=== PATIENT | male | born 1970 ===

== ENCOUNTER 2021-07-26 10:36 | Emergency (ER) | payer SELFPAY ==
[~2021-07-26] VITALS: Ht 180.3 cm; Wt 77.4 kg
[2021-07-26 10:47] VITALS: BP 132/81
[2021-07-26] MEDS ORDERED: LIDOCAINE 1% Multi-Dose 20 ML VIAL. INJ ONE (11:15)
[2021-07-26] MEDS ORDERED: CLINDAMYCIN HCL 150 MG CAPSULE. PO ONE (11:15)
[2021-07-26] MEDS ORDERED: HYDROcodone/APAP 5/325MG 1 TAB TABLET PO ONE (11:45)
[2021-07-26] MEDS ORDERED: IBUPROFEN 200 MG TABLET. PO ONE (11:45)
[2021-07-26] MEDS ORDERED: IBUP-1007 PO (11:47)
[2021-07-26] MEDS ORDERED: CLIN150C16 PO (11:47)
--- NOTE | 2021-07-26 11:47 | PHYS DOC ---
Past Medical History Past Medical History: No Pertinent History Past Surgical History: No Surgical History Smoking Status: Current Every Day Smoker Alcohol Use: Occasionally General Adult EDM: Chief Complaint: ABSCESS HPI: HPI: Patient is a 50-year-old male presents emergency department complaining of a infection to the left side of his face for the past 2 days. Patient reports pulling a hair out of the center of it and draining some green fluid yesterday, patient reports it was more swollen today worried that it might be an abscess. Patient denies numbness or tingling to his face, reports a 5 out of 10 pain, denies recent fever or chills, denies other physical complaints or physical concerns. Review of Systems: Review of Systems: 14 body systems of review of systems have been reviewed. See HPI for pertinent positives and negative responses, otherwise all other systems are negative, nonpertinent or noncontributory. Constitutional: Negative except as outlined in HPI above. Skin: Negative except as outlined in HPI above. Eyes: Negative except as outlined in HPI above. HENT: Negative except as outlined in HPI above. Respiratory: Negative except as outlined in HPI above. Cardiovascular: Negative except as outlined in HPI above. GI: Negative except as outlined in HPI above. : Negative except as outlined in HPI above. Musculoskeletal: Negative except as outlined in HPI above. Integument: Negative except as outlined in HPI above. Neurologic: Negative except as outlined in HPI above. Endocrine: Negative except as outlined in HPI above. Lymphatic: Negative except as outlined in HPI above. Psychiatric: Negative except as outlined in HPI above. Heart Score: C/O Chest Pain: No Risk Factors: Risk Factors: DM, Current or recent (<one month) smoker, HTN, HLP, family history of CAD, obesity. Risk Scores: Score 0 - 3: 2.5% MACE over next 6 weeks - Discharge Home Score 4 - 6: 20.3% MACE over next 6 weeks - Admit for Clinical Observation Score 7 - 10: 72.7% MACE over next 6 weeks - Early Invasive Strategies Current Medications: Current Medications Medications (Trade) Dose Ordered Sig/Lissett Start Time Stop Time Status Last Admin Dose Admin Clindamycin HCl (Cleocin) 450 mg 1X ONCE 07/26/21 11:15 07/26/21 11:16 DC 07/26/21 11:18 450 MG Lidocaine HCl (Lidocaine 1% 20ml Vial) 20 ml 1X ONCE 07/26/21 11:15 07/26/21 11:16 DC 07/26/21 11:19 20 ML Allergies: Allergies: Allergies Coded Allergies Type Severity Reaction Last Updated Verified Penicillins Allergy Severe HIVES 07/26/21 Yes Physical Exam: PE: Constitutional: Well developed, well nourished, no acute distress, non-toxic appearance. 50-year-old male in no apparent distress. HENT: Normocephalic, atraumatic. Eyes: Conjunctiva normal, no discharge. Neck: Normal range of motion, no stridor. Cardiovascular: No cyanosis appreciated, distal cap refill less than 2 seconds. Lungs & Thorax: Patient is in no respiratory distress, no audible adventitious lung sounds appreciated. Abdomen: Nontender, no abnormalities noted. Skin: Warm, dry, no erythema, no rash. 3 cm abscess to left side of face near jawline, fluctuant, has central punctum, erythematous. Back: No tenderness, no deformities. Extremities: No tenderness, no cyanosis, no clubbing, ROM intact, no edema. Neurologic: Alert and oriented X 3, normal motor function, normal sensory function, no focal deficits noted. Psychologic: Affect normal, judgement normal, mood normal. Current Patient Data: Vital Signs: Vital Signs Date Time Temp Pulse Resp B/P (MAP) Pulse Ox O2 Delivery O2 Flow Rate FiO2 07/26/21 10:47 97.7 97 18 132/81 (98) 100 Room Air 97.7 EKG: EKG: [] Radiology/Procedures: Radiology/Procedures: [] Course & Med Decision Making: Course & Med Decision Making Pertinent Labs and Imaging studies reviewed. (See chart for details) 50-year-old male, vital signs reviewed, resents emerged from concerning abscess left side of face. Physical examination concerning with fluctuant abscess will I&D, see I&D note. Patient gave verbal understanding of home care of abscess after incision and drainage, will start on clindamycin antibiotic orally 3 times a day x7 days, reviewed medications and side effects, patient gave verbal understanding of and is amenable to ED discharge planning. Discussed with the patient all findings and diagnostic testing as well as the need to follow-up with their primary care provider for further evaluation and treatment or return to the ED if any new or worsening symptoms. Strict return precautions were also discussed at length, the patient voiced understanding and agreement with the discharge planning. The patient was nontoxic in appearance, in no apparent distress, and hemodynamically stable at the time of disposition. Dylon Disclaimer: Dylon Disclaimer: This electronic medical record was generated, in whole or in part, using a voice recognition dictation system. Incision and Drainage Time: Confirmed : Patient, procedure, side, and site correct. Consent: Patient has given verbal consent for incision and drainage of facial abscess. Indication: Facial abscess Performed by: Amos Mcgee [employer] Supervision: Dr. Polo was available for consult regarding the critical aspects of the procedure, incision, and post procedure exam. Preprocedure exam: Circulation, motor, and sensory intact. Procedural sedation: Not indicated Description Location: Left side of face near jawline Anesthesia: Was achieved with 1 cc 1% lidocaine without epinephrine Preparation: Sterile field established, skin prepped with Betadine solution. Procedure The patient was positioned appropriately. An incision was then made over the central punctum using a #11 blade scalpel. Technique: A fluid collection was manually decompressed, wound probed, loculations decompressed . Drainage : Approximately 3 cc amount of purulent, bloody, serosanguineous was expressed, abscess vigorously irrigated with pressurized normal saline then packed with 1/4 inch gauze 6 cm.. Post procedure exam : Circulation, motor, sensory examination intact. Patient tolerated : Well. Complications: There were no complications. Follow-up: Home care instructions given. Total time: 10 minutes. Departure Departure Impression: Primary Impression: Cutaneous abscess of face Disposition: 01 HOME / SELF CARE / HOMELESS Condition: GOOD Patient Instructions: Abscess, Facial Infection Additional Instructions: You were seen today in the emergency department for a abscess of the left side of your face near your jawline. This was most likely caused from a infected hair follicle or sweat gland that became clogged. This was treated by incision and drainage, a moderate amount of purulent material was expressed. You were started on an antibiotic called clindamycin which you will take 450 mg 3 times a day for the next 7 days. You were given hydrocodone medication and ibuprofen medication in the emergency department today for pain. I am prescribing you the clindamycin antibiotic and ibuprofen, please take as directed. There is a packing material inside the abscess area, please leave in place for approximately 3 days, you may remove while showering. Please return for a wound evaluation in 3 days or follow-up with your primary care physician in 3 days to have this infection reevaluated please return to the emergency department for worsening symptoms, increased infection signs, or other concerns. Thank you for visiting our Emergency Department. It was a pleasure taking care of you today in the emergency department and we appreciate you trusting us with your care. If any additional problems come up don't hesitate to return to visit us. Please follow up with your primary care provider so they can plan additional care if needed and know about the problem that you had. If symptoms worsen come back to the Emergency Department. Any concerning symptoms that start such as chest pain, shortness of air, weakness or numbness on one side of the body, running high fe vers or any other concerning symptoms return to the ER. Scripts Clindamycin Hcl (CLINDAMYCIN HCL) 150 Mg Capsule 3 CAP PO TID for 7 Days, #63 CAP 0 Refills Prov: AMOS JOHNSON APRN 07/26/21 Ibuprofen (IBUPROFEN) 600 Mg Tablet 600 MG PO PRN Q6HRS PRN for INFLAMMATION, #30 TAB 0 Refills Prov: AMOS JOHNSON APRN 07/26/21 AMOS JOHNSON APRN Jul 26, 2021 11:47
== END 2021-07-26 12:10 | disposition home or self-care (01) ==
LOC: ER 10:36
DX: L02.01 Cutaneous abscess of face (principal); F17.200 Nicotine dependence, unspecified, uncomplicated; Z88.0 Allergy status to penicillin
CPT/HCPCS: 10060; 87070; 99283; J3490; 87077; 87186